=== PATIENT | male | born 1990 | race American Indian/Alaskan Native ===

== ENCOUNTER 2017-01-10 23:14 | Emergency (ER) | payer SELFPAY ==
[2017-01-11] MEDS ORDERED: MOTRIN ONE (00:04)
[2017-01-11] MEDS ORDERED: MOTRIN PO ONE (00:07)
[2017-01-11] MEDS ORDERED: NACL 0.9% 1000 ML 1,000 ML IV ONE (00:51)
[2017-01-11] MEDS ORDERED: D5W IV ONE (00:51)
[2017-01-11] MEDS ORDERED: SOLU MEDROL IV ONE (00:51)
[2017-01-11] MEDS ORDERED: ROCEPHIN/NS 1 GM/50 ML 1 GM/50 ML BAG IV ONE (00:51)
--- NOTE | 2017-01-11 01:47 | Emergency Department Report ---
ED ENT HPI - General Chief complaint: Sore Throat Stated complaint: SWOLLEN MOUTH AND THROAT Time Seen by Provider: 01/11/17 00:43 Source: patient Mode of arrival: Ambulatory Limitations: No Limitations - History of Present Illness Initial comments: Patient comes into the ER today with complaints of sore throat, body aches, chills for the past 2 days. Patient has been taking [id number] medicine for his fever as well as just started some of his 's penicillin today. Patient states the pain is worse with swallowing. Patient notes that today he started getting some swelling to right lower jaw area. Patient states she does have a bad tooth in that area but believes this is more his throat causing his problem. Patient denies any vomiting, abdominal pain, chest pain, shortness of breath, nasal congestion. MD complaint: sore throat - Related Data Previous Rx's Medication Instructions Recorded Last Taken Type Amoxicillin 1,000 mg PO BID #40 capsule 01/11/17 Unknown Rx traMADol [Ultram] 50 mg PO Q4HR PRN #20 tablet 01/11/17 Unknown Rx Allergies Allergy/AdvReac Type Severity Reaction Status Date / Time No Known Allergies Allergy Verified 01/11/17 00:14 ED Dental HPI - General Chief complaint: Sore Throat Stated complaint: SWOLLEN MOUTH AND THROAT Time Seen by Provider: 01/11/17 00:43 Source: patient Mode of arrival: Ambulatory Limitations: No Limitations - Related Data Previous Rx's Medication Instructions Recorded Last Taken Type Amoxicillin 1,000 mg PO BID #40 capsule 01/11/17 Unknown Rx traMADol [Ultram] 50 mg PO Q4HR PRN #20 tablet 01/11/17 Unknown Rx Allergies Allergy/AdvReac Type Severity Reaction Status Date / Time No Known Allergies Allergy Verified 01/11/17 00:14 ED Review of Systems ROS: Stated complaint: SWOLLEN MOUTH AND THROAT Other details as noted in HPI Constitutional: chills, fever Eyes: denies: eye pain, eye discharge, vision change ENT: throat pain. denies: ear pain, dental pain, congestion Respiratory: denies: cough, shortness of breath, wheezing Cardiovascular: denies: chest pain, palpitations Endocrine: no symptoms reported Gastrointestinal: denies: abdominal pain, nausea, vomiting, diarrhea Genitourinary: denies: urgency, dysuria Musculoskeletal: myalgia. denies: back pain, joint swelling, arthralgia Skin: denies: rash, lesions Neurological: denies: headache, weakness, paresthesias Psychiatric: denies: anxiety, depression Hematological/Lymphatic: denies: easy bleeding, easy bruising ED Past Medical Hx - Past Medical History Previous Medical History?: Yes Hx Hypertension: Yes (not taking medication) - Surgical History Past Surgical History?: No - Social History Smoking Status: Current Every Day Smoker - Medications Home Medications: Home Medications Medication Instructions Recorded Confirmed Last Taken Type Amoxicillin 1,000 mg PO BID #40 capsule 01/11/17 Unknown Rx traMADol [Ultram] 50 mg PO Q4HR PRN #20 tablet 01/11/17 Unknown Rx ED Physical Exam - General Limitations: No Limitations General appearance: alert, in no apparent distress - Head Head exam: Present: atraumatic, normocephalic, other (right anterior and lateral mandibular swelling without external redness) - Eye Eye exam: Present: normal appearance, PERRL, EOMI. Absent: conjunctival injection - ENT ENT exam: Present: mucous membranes moist, TM's normal bilaterally, normal external ear exam, other (posterior pharynx erythematous and small exudate noted. Right lower dental caries noted. No internal visible dental abscess noted.) - Neck Neck exam: Present: normal inspection, tenderness (right tonsillar and submandibular tenderness), full ROM, lymphadenopathy (right tonsillar and submandibular) - Respiratory Respiratory exam: Present: normal lung sounds bilaterally. Absent: respiratory distress - Cardiovascular Cardiovascular Exam: Present: normal rhythm, tachycardia, normal heart sounds. Absent: systolic murmur, diastolic murmur, rubs, gallop - GI/Abdominal GI/Abdominal exam: Present: soft, normal bowel sounds. Absent: distended, tenderness, guarding, rebound - Rectal Rectal exam: Present: deferred - Extremities Exam Extremities exam: Present: normal inspection - Back Exam Back exam: Present: normal inspection - Neurological Exam Neurological exam: Present: alert, oriented X3, CN II-XII intact, reflexes normal. Absent: motor sensory deficit - Psychiatric Psychiatric exam: Present: normal affect, normal mood - Skin Skin exam: Present: warm, dry, intact, normal color. Absent: rash ED Course Vital Signs 01/10/17 01/11/17 23:54 00:15 Temperature 101.0 F H Pulse Rate 100 H Respiratory 18 20 Rate Blood Pressure 137/89 O2 Sat by Pulse 97 Oximetry ED Medical Decision Making - Lab Data Rapid strep negative here in the ER - Medical Decision Making Patient does appear to not be feeling very well upon initial evaluation. Patient does have fever on initial triage here in the ER. Patient was given ibuprofen for his fever. Patient states he has not been eating or drinking much for the past 2 days due to the discomfort. Patient was given 1 L of IV fluids, IV Rocephin as well as IV Solu-Medrol to expedite recovery of symptoms. I will continue patient on antibiotics as well as refer patient back to his primary care doctor as well as dentist for further evaluation and to ensure resolution of condition. Patient's heart rate and fever improved after treatment here in the ER. Patient is in agreement with treatment plan and patient is stable for discharge. Critical care attestation.: If time is entered above; I have spent that time in minutes in the direct care of this critically ill patient, excluding procedure time. ED Disposition Clinical Impression: Pharyngitis, Acute febrile illness Disposition: TO HOME OR SELFCARE Is pt being admited?: No Does the pt Need Aspirin: No Condition: Good Instructions: Dental Caries (ED), Strep Throat (ED), Fever in Adults (ED) Prescriptions: Amoxicillin 1,000 mg PO BID #40 capsule traMADol [Ultram] 50 mg PO Q4HR PRN #20 tablet PRN Reason: Pain Referrals: PRIMARY CARE, [Primary Care Provider] - 3-5 Days [facility] [Outside] - 3-5 Days Time of Disposition: 02:45
[2017-01-11 02:53] VITALS: BP 113/65
== END 2017-01-11 02:54 | disposition home or self-care (01) ==
LOC: ED 23:14
DX: J02.9 Acute pharyngitis, unspecified (principal); R50.9 Fever, unspecified; F17.200 Nicotine dependence, unspecified, uncomplicated; I10 Essential (primary) hypertension
CPT/HCPCS: 87116; 87430; 96365; 96375; 99284; J0696; J2930; J7030